=== PATIENT | male | born 1975 | race Caucasian/White ===

== ENCOUNTER 2018-01-26 18:00 | Emergency (ER) | payer BC ==
--- NOTE | 2018-01-26 18:10 | PDOC ---
History of Present Illness <Brittani Jauregui - Last Filed: 01/26/18 18:10> - General History Source: Patient Exam Limitations: No Limitations - History of Present Illness Initial Comments: 01/26/18 18:34 The patient is a 42 year old male with a significant PMH of HTN who presents to the emergency department with heart palpitations and chest tightness today. The patient reports intermittent heart palpitations since October. The patient endorses he has been exercising more than usual. The patient states he lifted weights and ran three miles today but denies having chest palpitations or chest tightness during his work-out. He states the heart palpitations typically occur after his workout or while he is eating. The patient is also complaining of weight gain and lack of sleep at night. Patient reports he takes 4 cold brews per day and does not drink enough water daily. The patient states he had a stress test and ECHO one year ago, which were both normal. The patient denies chest pain, shortness of breath, headache and dizziness. Denies fever, chills, nausea, vomit, diarrhea and constipation. Denies dysuria, frequency, urgency and hematuria. Allergies: NKA Past surgical history: None reported. Social history: No reported alcohol, drug, or cigarette use. Branch Maker: Dr. Malone <Antonia Garza - Last Filed: 01/26/18 19:02> - General Chief Complaint: Palpitations Stated Complaint: PALPITATIONS Time Seen by Provider: 01/26/18 18:05 Past History - Past Medical History Asthma: Yes (MILD. NO MEDS.) - Suicide/Smoking/Psychosocial Hx Smoking History: Never smoked Hx Alcohol Use: Yes (WINE) Drug/Substance Use Hx: No Substance Use Type: None <Brittani Jauregui - Last Filed: 01/26/18 18:10> <Antonia Garza - Last Filed: 01/26/18 19:02> - Past Medical History Allergies/Adverse Reactions: Allergies Allergy/AdvReac Type Severity Reaction Status Date / Time No Known Allergies Allergy Verified 01/26/18 18:04 Home Medications: Ambulatory Orders Valsartan/Hydrochlorothiazide [Valsartan-Hctz 80-12.5 mg Tab] 2 tab PO DAILY 08/03 Review of Systems - Review of Systems Able to Perform ROS?: Yes Comments:: 01/26/18 18:30 GENERAL/CONSTITUTIONAL: No fever or chills. No weakness. HEAD, EYES, EARS, NOSE AND THROAT: No change in vision. No ear pain or discharge. No sore throat. CARDIOVASCULAR: (+) Heart palpitations and chest tightness. No chest pain or shortness of breath. RESPIRATORY: No cough, wheezing, or hemoptysis. GASTROINTESTINAL: No nausea, vomiting, diarrhea or constipation. GENITOURINARY: No dysuria, frequency, or change in urination. MUSCULOSKELETAL: No joint or muscle swelling or pain. No neck or back pain. SKIN: No rash NEUROLOGIC: No headache, vertigo, loss of consciousness, or change in strength/ sensation. ENDOCRINE: No increased thirst. No abnormal weight change. HEMATOLOGIC/LYMPHATIC: No anemia, easy bleeding, or history of blood clots. ALLERGIC/IMMUNOLOGIC: No hives or skin allergy. <Antonia Garza - Last Filed: 01/26/18 19:02> *Physical Exam - Vital Signs Last Vital Signs Temp Pulse Resp BP Pulse Ox 98.1 F 93 H 18 146/98 100 01/26/18 18:00 01/26/18 18:00 01/26/18 18:00 01/26/18 18:00 01/26/18 18:00 <Antonia Garza - Last Filed: 01/26/18 19:02> ED Treatment Course - LABORATORY CBC & Chemistry Diagram: 01/26/18 18:39 01/26/18 18:39 <Antonia Garza - Last Filed: 01/26/18 19:02> *DC/Admit/Observation/Transfer <Brittani Jauregui - Last Filed: 01/26/18 18:10> - Attestations Scribe Attestion: 01/26/18 18:47 Documentation prepared by Antonia Garza, acting as center medical and lab director for Brittani Jauregui MD. <Antonia Garza - Last Filed: 01/26/18 19:02> - Discharge Dispostion Condition at time of disposition: Stable
[2018-01-26 18:13] VITALS: TEMP 98.1; BMI 32.4
[2018-01-26 18:52] LABS: BASO % 2.3 % (0-2.0); EOS % 2.5 % (0-4.5); HEMATOCRIT 43.8 % (35.4-49); HEMOGLOBIN 15.1 GM/dl (11.7-16.9); LYMPH % 18.5 % (8-40); MCH 29.9 pg (25.7-33.7); MCHC 34.4 g/dl (32.0-35.9); MEAN CELL VOLUME 86.9 fl (80-96); MEAN PLT VOLUME 8.2 fl (7.5-11.1); MONO % 5.8 % (3.8-10.2); NEUT % 70.9 % (42.8-82.8); PLATELET COUNT 249 K/MM3 (134-434); RBC 5.04 M/mm3 (4.00-5.60); WHITE BLOOD COUNT 10.1 K/mm3 (4.0-10.8)
[2018-01-26 19:08] LABS: ALBUMIN 4.4 g/dl (3.5-5.0); ALK PHOS 42 U/L (32-92); ANION GAP 12 (8-16); BILIRUBIN,TOTAL 0.5 mg/dl (0.2-1.0); BLOOD UREA NITROGEN 27 mg/dl (7-18); CALCIUM 9.8 mg/dl (8.4-10.2); CHLORIDE 97 mmol/L (98-107); CO2 25 mmol/L (22-28); CREATININE 1.5 mg/dl (0.6-1.3); GLUCOSE,RANDOM 93 mg/dl (74-106); POTASSIUM 3.4 mmol/L (3.5-5.1); SGOT/AST 35 U/L (10-42); SGPT/ALT 37 U/L (10-40); SODIUM 134 mmol/L (136-145); TOT PROT 6.6 g/dl (6.4-8.3)
[2018-01-26] MEDS ORDERED: SODIUM CHLORIDE 1,000 ML IV STA ×2 (19:53→21:34)
--- NOTE | 2018-01-26 20:10 | PDOC ---
*Physical Exam - Vital Signs Last Vital Signs Temp Pulse Resp BP Pulse Ox 98.1 F 93 H 18 146/98 100 01/26/18 18:00 01/26/18 18:00 01/26/18 18:00 01/26/18 18:00 01/26/18 18:00 ED Treatment Course - LABORATORY CBC & Chemistry Diagram: 01/26/18 18:39 01/27/18 00:30 - ADDITIONAL ORDERS Additional order review: Laboratory Results 01/26/18 01/26/18 18:39 18:39 Sodium 134 L Potassium 3.4 L Chloride 97 L Carbon Dioxide 25 Anion Gap 12 BUN 27 H Creatinine 1.5 H Creat Clearance w eGFR 51.08 Random Glucose 93 Calcium 9.8 Total Bilirubin 0.5 AST 35 ALT 37 Alkaline Phosphatase 42 Creatine Kinase 786 H Creatine Kinase Index 0.7 CK-MB (CK-2) 5.9 H Troponin I < 0.03 Total Protein 6.6 Albumin 4.4 01/26/18 18:39 RBC 5.04 MCV 86.9 MCHC 34.4 RDW 12.0 MPV 8.2 Neutrophils % 70.9 Lymphocytes % 18.5 Monocytes % 5.8 Eosinophils % 2.5 Basophils % 2.3 H Progress Note - Progress Note Progress Note: Pt received on signout at 7pm pending labs. Cr 1.5, CPK 700s. Will send UA, hydrate with 2L normal saline and repeat labs. Dc vs admit for rhabdo/IVF pending results. Medical Decision Making - Medical Decision Making 01/27/18 01:52 Pt feeling improved, HR 90s, is now s/p 2L IVF, Cr now 1.2 from 1.5 and CPK downtrending. Will dc home, advise PO fluid hydration and f/u with PMD. *DC/Admit/Observation/Transfer - Discharge Dispostion Disposition: HOME Condition at time of disposition: Stable - Referrals - Patient Instructions Additional Instructions: Please call your doctor for follow up. Your bloodwork showed today that you were quite dehydrated, which is likely due to the exercise and not drinking a lot of water. It's VERY IMPORTANT that you drink lots of water, especially when you exercise. Call your oncologist for follow up if you continue to have palpitations. Return to the ER if chest pain, shortness of breath or other concerning new symptoms. - Post Discharge Activity
[2018-01-26 20:13] LABS: PH,URINE 5.5 (4.5-8); URINE APPEARANCE Clear; URINE BILIRUBIN Negative (NEGATIVE); URINE BLOOD Negative (NEGATIVE); URINE GLUCOSE (UA) Negative (NEGATIVE); URINE KETONE 2+ (NEGATIVE); URINE LEUK ESTERASE Negative (NEGATIVE); URINE NITRITE Negative (NEGATIVE); URINE PROTEIN Negative (NEGATIVE); URINE UROBILINOGEN 0.2 (0.2-1.0)
[2018-01-26 20:15] LABS: URINE COLOR YELLOW
[2018-01-26 20:44] VITALS: BP 141/95; PULSE 91
[2018-01-27 01:24] LABS: ALBUMIN 3.9 g/dl (3.4-5.0); ANION GAP 10 (8-16); BLOOD UREA NITROGEN 23 mg/dL (7-18); CALCIUM 8.4 mg/dL (8.5-10.1); CHLORIDE 102 mmol/L (98-107); CO2 26 mmol/L (21-32); CREATININE 1.2 mg/dL (0.7-1.3); GLUCOSE,RANDOM 79 mg/dL (74-106); SGOT/AST 32 U/L (15-37); SGPT/ALT 46 U/L (12-78); SODIUM 138 mmol/L (136-145)
[2018-01-27 01:26] LABS: ALK PHOS 47 U/L (45-117); BILIRUBIN,TOTAL 0.6 mg/dL (0.2-1.0); TOT PROT 6.7 g/dl (6.4-8.2)
--- NOTE | 2018-01-27 09:40 | EKG ---
Test Reason : Blood Pressure : / mmHG Vent. Rate : 100 BPM Atrial Rate : 100 BPM P-R Int : 148 ms QRS Dur : 092 ms QT Int : 324 ms P-R-T Axes : 056 028 006 degrees QTc Int : 417 ms NORMAL SINUS RHYTHM NONSPECIFIC T WAVE ABNORMALITY ABNORMAL ECG NO PREVIOUS ECGS AVAILABLE Confirmed by PATTI NINO, MARYAM ([id number]) on 01/27/2018 9:39:47 AM Referred By: DR HAM Confirmed By:MARYAM ARMSTRONG MD
== END 2018-01-27 02:04 | disposition home or self-care (01) ==
LOC: SUPCPDRO 18:00 → FER 18:00
PROC: 3E0337Z Introduction of Electrolytic and Water Balance Substance into Peripheral Vein, Percutaneous Approach (ICD-10-PCS; principal; 2018-01-26)
DX: E86.0 Dehydration (principal)
CPT/HCPCS: 36415; 71045-TC-FY; 80053; 81003; 82550; 82553; 84443; 84484; 85025; 93005; 99285-25; J7030

== ENCOUNTER 2018-01-31 16:47 | Observation (INO) | payer BC ==
[2018-01-31 17:40] LABS: HEMATOCRIT 44.5 % (35.4-49); HEMOGLOBIN 15.2 GM/dL (11.7-16.9); LYMPH % 9.9 % (8-40); MCH 30.2 pg (25.7-33.7); MCHC 34.2 g/dl (32.0-35.9); MEAN CELL VOLUME 88.2 fl (80-96); MEAN PLT VOLUME 8.4 fl (7.5-11.1); MONO % 5.1 % (3.8-10.2); PLATELET COUNT 256 K/MM3 (134-434); RBC 5.04 M/mm3 (4.00-5.60); RDW 12.8 % (11.9-15.9); WHITE BLOOD COUNT 11.4 K/mm3 (4.0-10.0)
--- NOTE | 2018-01-31 17:49 | PDOC ---
History of Present Illness - General Chief Complaint: Palpitations Stated Complaint: PALPITATIONS Time Seen by Provider: 01/31/18 17:05 History Source: Patient - History of Present Illness Initial Comments: 01/31/18 17:43 42 year old male with a hx of hypertension presents to the ED for palpitations and midsternal chest pain. He states that he has been having palpitations one and off for about 1 week, and was seen here at [facility] several days ago. Today, he reports that he was at a movie theater when he began having the palpitations and pain. He reports lightheadedness and the feeling like he will pass out. Denied shortness of breath. He states that the palpitations originally started in October and have been on and off since. He has seen a black studies professor Dr. Malone in [place], who did an EKG and holter monitor, but he does not know the result. A nuclear stress test was recommended, but it was never scheduled. He reports that he drinks every day, around 1-2 drinks a day. Allergies: none Smoking: none Alcohol: 1-2 drinks every day Drugs: none PMD: Dr. Blevins Surgeries: L sided inguinal hernia repair Past History - Past Medical History Allergies/Adverse Reactions: Allergies Allergy/AdvReac Type Severity Reaction Status Date / Time No Known Allergies Allergy Verified 01/31/18 18:00 Home Medications: Ambulatory Orders Valsartan/Hydrochlorothiazide [Valsartan-Hctz 80-12.5 mg Tab] 2 tab PO DAILY 08/03 Asthma: Yes (MILD. NO MEDS.) COPD: No HTN: Yes Psychiatric Problems: Yes (ANXIETY) - Suicide/Smoking/Psychosocial Hx Smoking History: Never smoked Have you smoked in the past 12 months: No Hx Alcohol Use: Yes (WINE) Drug/Substance Use Hx: No Substance Use Type: None Review of Systems - Review of Systems Able to Perform ROS?: Yes Constitutional: No: Chills, Fever, Weakness Respiratory: No: Cough, Shortness of Breath Cardiac (ROS): Yes: Chest Pain, Palpitations. No: Edema, Syncope ABD/GI: No: Diarrhea, Nausea, Vomiting *Physical Exam - Vital Signs Last Vital Signs Temp Pulse Resp BP Pulse Ox 98.4 F 79 17 111/71 95 02/02/18 05:51 02/02/18 05:51 02/02/18 05:51 02/02/18 05:51 02/01/18 23:00 - Physical Exam Comments: 01/31/18 17:54 GENERAL: A&Ox3, anxious appearing EYES: PERRLA, EOMI ENT: Moist mucus membranes NECK: No JVD LUNGS: CTA, no wheezes HEART: RRR, no murmurs ABDOMEN: Soft, nontender, BS present MUSCULOSKELETAL: No CVA Tenderness EXTREMITIES: 2+ pulses, no edema. NEUROLOGICAL: Cranial nerves II-XII intact. ED Treatment Course - LABORATORY CBC & Chemistry Diagram: 02/02/18 06:00 02/02/18 06:00 - ADDITIONAL ORDERS Additional order review: 01/31/18 17:26 RBC 5.04 MCV 88.2 MCHC 34.2 RDW 12.8 MPV 8.4 Neutrophils % 82.0 Lymphocytes % 9.9 Monocytes % 5.1 Eosinophils % 2.0 Basophils % 1.0 Medical Decision Making - Medical Decision Making 01/31/18 17:58 42 year old male with palpitations and chest pain of several days duration -cbc, cmp, troponin, mag, EKG, chest xray negative, UA -CBC normal -EKG NSR, nonspecific T wave abnormality, Qtc 425 -gave 1 L fluid bolus -gave ASA 325 01/31/18 18:31 -troponin x1 negative, will repeat troponin at 9pm -chemistries normal -patient continues to have chest discomfort and palpitations *DC/Admit/Observation/Transfer Diagnosis at time of Disposition: Palpitations - Discharge Dispostion Decision to Admit order: Yes - Referrals - Patient Instructions - Post Discharge Activity
[2018-01-31 18:01] VITALS: BMI 29.0
[2018-01-31 18:12] LABS: ALBUMIN 3.8 g/dl (3.4-5.0); ANION GAP 10 (8-16); BILIRUBIN,TOTAL 0.5 mg/dL (0.2-1.0); BLOOD UREA NITROGEN 21 mg/dL (7-18); CALCIUM 8.9 mg/dL (8.5-10.1); CHLORIDE 100 mmol/L (98-107); CO2 28 mmol/L (21-32); CREATININE 1.3 mg/dL (0.7-1.3); GLUCOSE,RANDOM 117 mg/dL (74-106); MAGNESIUM 1.8 mg/dL (1.8-2.4); POTASSIUM 3.8 mmol/L (3.5-5.1); SGOT/AST 20 U/L (15-37); SGPT/ALT 45 U/L (12-78); SODIUM 138 mmol/L (136-145); TOT PROT 6.8 g/dl (6.4-8.2)
--- NOTE | 2018-01-31 18:18 | PDOC ---
Attending Attestation - Resident Resident Name: Stephen Velasco - ED Attending Attestation I have performed the following: I have examined & evaluated the patient, The case was reviewed & discussed with the resident, I agree w/resident's findings & plan, Exceptions are as noted - HPI HPI: 01/31/18 18:17 42 yo male p/w chest tightness that started while watching the movies - Physicial Exam PE: 01/31/18 19:29 this 42 yo male p/w palpitations 01/31/18 20:03 WNWD 42 yo male in no acute distress head ncat neck supple lungs cta cvs rrr s1s2 abd soft,nontender ext no e/c/c neuro axox3,ambulatory skin warm and dry psych anxious - Medical Decision Making 01/31/18 20:05 first trop is negative pt was seen for same complaint on 01/26/18 and had cxr at that time that was negative -pt admitted to tele OBS
[2018-01-31 18:21] LABS: ALK PHOS 47 U/L (45-117)
[2018-01-31] MEDS ORDERED: ASPIRIN 325 MG ENTERIC COATED TABLET (FP) ONE (18:34)
[2018-01-31] MEDS: ASPIRIN 325 MG ENTERIC COATED TABLET (FP) PO SCH (19:29)
[2018-01-31 19:35] LABS: URINE APPEARANCE CLEAR; URINE BILIRUBIN NEGATIVE (<2.0 mg/dL); URINE COLOR LTYELLOW; URINE GLUCOSE (UA) NEGATIVE (NEGATIVE); URINE KETONE 1+ (NEGATIVE); URINE LEUK ESTERASE NEGATIVE (NEGATIVE); URINE NITRITE NEGATIVE (NEGATIVE); URINE PROTEIN NEGATIVE (NEGATIVE); URINE UROBILINOGEN NEGATIVE mg/dL (0.2-1.0)
--- NOTE | 2018-01-31 19:35 | HP ---
CHIEF COMPLAINT: Chest Pain PCP: Dr. Blevins HISTORY OF PRESENT ILLNESS: 42 yo with pmh of HTN, HLD, anxiety who presents with 5 days of intermittent palpitations and chest pain, most recently associated with multiple episodes of lightheadness and diaphoresis today. Pt states that on Thursday last week, he began have intermittent palpitations and chest tightness/pain, with no consistent exacerbating or alleviating factors, no temporal consistency, not exacerbated by exercise or relieved by rest, lasting anywhere from seconds to hours. Pt states he was seen at [place] for these symptoms at the time and was discharged home as the cardiac work-up was negative. Pt states the symptoms have persisted for the last five days and today he became notable diaphoretic and somnolent while at the movies with his after another bout of chest pain. EMS was activated and the pt experienced another episode in the ambulance while en route to the [facility] ER. Pt also endorses persistent fatigue over the last week and poor exercise tolerance. Pt was seen by his blood bank custodian, Dr. Malone, in the past due to similar chest pain one year ago and received an EKG and holter monitor, but is unsure of results. He states he was recommended for a nuclear stress test, but it was never scheduled. Pt has no other cardiac conditions apart from HTN and HLD. He denies any recent travel, sick contacts or dietary changes. He denies any hx of skin infections or rashes of the chest wall, recent trauma. Denies f/c/n/v/d, PAN, vision changes, dysphagia, GERD, cough, SOB, ab pain, LE edema, dysuria, melena, hematochezia. ER course was notable for: (1)Normal vitals (2)WBC 11.4K (3)trop neg x1, ekg normal. Received ASA, 1L NS bolus Recent Travel: None PAST MEDICAL HISTORY: Asthma HTN Anxiety HLD ?arthritis PAST SURGICAL HISTORY: L-sided inguinal hernia Social History: Smoking: None Alcohol: 1-2 drinkers per day Drugs: None Family History: [place] Allergies None No Known Allergies Allergy (Verified 01/31/18 18:00) HOME MEDICATIONS: Home Medications Medication Instructions Recorded Valsartan/Hydrochlorothiazide 2 tab PO DAILY 01/26/18 [Valsartan-Hctz 80-12.5 mg Tab] REVIEW OF SYSTEMS CONSTITUTIONAL: + generalized weakness, malaise Absent: fever, chills, diaphoresis, loss of appetite, weight change HEENT: Absent: rhinorrhea, nasal congestion, throat pain, throat swelling, difficulty swallowing, mouth swelling, ear pain, eye pain, visual changes CARDIOVASCULAR: + chest pain/tightness Absent: syncope, palpitations, irregular heart rate, lightheadedness, peripheral edema RESPIRATORY: Absent: cough, shortness of breath, dyspnea with exertion, orthopnea, wheezing, stridor, hemoptysis GASTROINTESTINAL: Absent: abdominal pain, abdominal distension, nausea, vomiting, diarrhea, constipation, melena, hematochezia GENITOURINARY: Absent: dysuria, frequency, urgency, hesitancy, hematuria, flank pain, genital pain MUSCULOSKELETAL: Absent: myalgia, arthralgia, joint swelling, back pain, neck pain SKIN: Absent: rash, itching, pallor HEMATOLOGIC/IMMUNOLOGIC: Absent: easy bleeding, easy bruising, lymphadenopathy, frequent infections ENDOCRINE: Absent: unexplained weight gain, unexplained weight loss, heat intolerance, cold intolerance NEUROLOGIC: Absent: headache, focal weakness or paresthesias, dizziness, unsteady gait, seizure, mental status changes, bladder or bowel incontinence PSYCHIATRIC: Absent: anxiety, depression, suicidal or homicidal ideation, hallucinations. PHYSICAL EXAMINATION Vital Signs - 24 hr 01/31/18 16:47 Temperature 98.2 F Pulse Rate 80 Respiratory 16 Rate Blood Pressure 128/69 O2 Sat by Pulse 100 Oximetry (%) GENERAL: Middle aged man, Awake, alert, and fully oriented, appears anxious HEAD: Normal with no signs of trauma. EYES: Pupils equal, round and reactive to light, extraocular movements intact, sclera anicteric, conjunctiva clear. No lid lag. EARS, NOSE, THROAT: Ears normal, nares patent, oropharynx clear without exudates. Moist mucous membranes. NECK: Normal range of motion, supple without lymphadenopathy, JVD, or masses. LUNGS: Breath sounds equal, clear to auscultation bilaterally. No wheezes, and no crackles. No accessory muscle use. HEART: Regular rate and rhythm, normal S1 and S2 without murmur, rub or gallop. ABDOMEN: Soft, nontender, not distended, normoactive bowel sounds, no guarding, no rebound, no masses. No hepatomegaly or splenomegaly. MUSCULOSKELETAL: Normal range of motion at all joints. No bony deformities or tenderness. No CVA tenderness. UPPER EXTREMITIES: 2+ pulses, warm, well-perfused. No cyanosis. No clubbing. No peripheral edema. LOWER EXTREMITIES: 2+ pulses, warm, well-perfused. No calf tenderness. No peripheral edema. NEUROLOGICAL: Cranial nerves II-XII intact. Normal speech. Gait not evaluated. PSYCHIATRIC: Cooperative. Good eye contact. Appropriate mood and affect. anxious SKIN: Warm, dry, normal turgor, no rashes or lesions noted, normal capillary refill. Laboratory Results - last 24 hr CBC, BMP 18 17:26 18 17:26 18 18 18 17:26 17:26 17:47 WBC 11.4 H RBC 5.04 Hgb 15.2 Hct 44.5 MCV 88.2 MCH 30.2 MCHC 34.2 RDW 12.8 Plt Count 256 MPV 8.4 Absolute Neuts (auto) 9.4 Neutrophils % 82.0 Lymphocytes % 9.9 Monocytes % 5.1 Eosinophils % 2.0 Basophils % 1.0 Nucleated RBC % 0 Sodium 138 Potassium 3.8 Chloride 100 Carbon Dioxide 28 Anion Gap 10 BUN 21 H Creatinine 1.3 Creat Clearance w eGFR > 60 Random Glucose 117 H D Calcium 8.9 Magnesium 1.8 Total Bilirubin 0.5 AST 20 D ALT 45 Alkaline Phosphatase 47 Creatine Kinase 170 Cancelled Creatine Kinase Index 0.5 CK-MB (CK-2) 0.88 Troponin I < 0.02 Cancelled Total Protein 6.8 Albumin 3.8 TSH 0.85 D No micro CXR 01/26 - No acute pathology noted EKG - rate of 77, NAD, regular rate, qtc 425, possibly LVH ASSESSMENT/PLAN: 42 yo with pmh of HTN, HLD, anxiety who presents with 5 days of intermittent palpitations and chest pain, most recently associated with multiple episodes of lightheadness and diaphoresis today. Cardiac work-up negative up until this point. #Chest pain/tightness/palpitations - trops negative x1; EKG normal; Heart score of 1 - ASA - Cardiac monitoring - O2 support - Trend trops; f/u 2nd trop - ECHO in AM - cardiology consult - Consider SL nitro if pain persists #HTN - normotensive; on diovan at home - c/w home meds - vitals q4h #HLD - no active meds; cholesterol of "205" during prior visit to general teller - lipid panel - if elevated, will start on statin #Anxiety/depression - c/w home zoloft. CONFIRM HOME DOSE IN AM! PPX PPI HSQ FEN PO hydration Daily lytes Cardiac diet Plan to be discussed with Dr. Jose Santos MD Visit type - Emergency Visit Emergency Visit: Yes ED Registration Date: 01/31/18 Care time: The patient presented to the Emergency Department on the above date and was hospitalized for further evaluation of their emergent condition. - New Patient This patient is new to me today: Yes Date on this admission: 02/02/18 - Critical Care Critical Care patient: No Hospitalist Screening - Colonoscopy Questionnaire Colonoscopy Questionnaire: Colonoscopy Questionnaire - Patient: 50 - 75 years old and never had a screening colonoscopy: Unknown History of colon or rectal polyps, or CA: Unknown History of IBD, Crohn's disease or UC: Unknown History of abdominal radiation therapy as a child: Unknown - Relative: 1 with colon or rectal CA, or polyps at age 60 or younger: Unknown Colon or rectal CA diagnosed at age 45 or younger: Unknown Multiple relatives with colon or rectal CA: Unknown - Outcome: Screening Result: Negative Screen
[2018-01-31] MEDS ORDERED: ACETAMINOPHEN 325 MG TABLET (FP) PO PRN (23:06)
[2018-02-01] MEDS: ALPRAZolam 0.25 MG TABLET PO PRN ×3 (00:04→21:55)
[2018-02-01] MEDS ORDERED: ALPRAZolam 0.25 MG TABLET ONE (00:06)
--- NOTE | 2018-02-01 00:09 | PN ---
Teaching Attending Note Name of Resident: Kenroy Santos ATTENDING PHYSICIAN STATEMENT I saw and evaluated the patient. Chart, data, imaging reviewed. I reviewed the resident's note and discussed the case with the resident. I agree with the resident's findings and plan as documented. SUBJECTIVE: 42 yo man with pmh of HTN, HLD, anxiety who presents with 5 days of intermittent palpitations and chest pain. Patient was no history of cardiac disease. EKG in ER was essentially wnl. HE runs 3 miles 3 times a week without any issues and lifts weights at the gym. He mentioned that he was worked up by outside machine technician one year ago including echo, ekg, holter which were wnl. OBJECTIVE: Last Vital Signs Temp Pulse Resp BP Pulse Ox 98.2 F 91 H 18 137/75 98 01/31/18 16:47 01/31/18 22:45 01/31/18 22:45 01/31/18 22:45 01/31/18 22:45 general- nad, aaox3 heent -at, nc cv-s1+s2+rrr chest cta abdomen -soft , nt skin - no rashes Abnormal Lab Results 01/31/18 01/31/18 01/31/18 17:26 17:26 19:30 WBC 11.4 H BUN 21 H Random Glucose 117 H D Urine Ketones 1+ H ekg reviewed by me , nsr, no signs of acute ischemic changes ASSESSMENT AND PLAN: #42yo man with palpitations likely secondary to anxiety. Doubt ACS, given patient's functional status, angélica; EKG, lack of risk factors, and previously normal workup with machine technician. TSH was wnl. Chest discomfort may also be costochondritis from weight lifting. -tele/observation -send urine drug screen -trend troponin -transthoracic echo -continue SSRI -xananx prn for acute anxiety attacks -psych evaluation for anxiety as an outpatient -heparin for dvt ppx
[2018-02-01] MEDS: HEPARIN NA (PORCINE) 5,000 UNITS/ML 1ML VIAL SQ SCH ×3 (06:29→21:55)
[2018-02-01 07:00] LABS: BASO % 0.9 % (0-2.0); EOS % 1.9 % (0-4.5); HEMATOCRIT 43.4 % (35.4-49); HEMOGLOBIN 15.1 GM/dL (11.7-16.9); LYMPH % 17.7 % (8-40); MCH 30.5 pg (25.7-33.7); MCHC 34.9 g/dl (32.0-35.9); MEAN CELL VOLUME 87.4 fl (80-96); MEAN PLT VOLUME 8.3 fl (7.5-11.1); MONO % 6.6 % (3.8-10.2); NEUT % 72.9 % (42.8-82.8); PLATELET COUNT 212 K/MM3 (134-434); RBC 4.97 M/mm3 (4.00-5.60); RDW 12.9 % (11.9-15.9); WHITE BLOOD COUNT 8.2 K/mm3 (4.0-10.0)
[2018-02-01 07:17] LABS: INR 1.06 (0.82-1.09)
[2018-02-01 07:20] LABS: ACTIVATED PTT 26.2 SECONDS (25.2-36.5)
[2018-02-01 07:47] LABS: CHLORIDE 98 mmol/L (98-107); POTASSIUM 3.6 mmol/L (3.5-5.1); SODIUM 137 mmol/L (136-145)
[2018-02-01 08:07] LABS: ALBUMIN 3.8 g/dl (3.4-5.0); ALK PHOS 47 U/L (45-117); ANION GAP 11 (8-16); BLOOD UREA NITROGEN 12 mg/dL (7-18); CO2 28 mmol/L (21-32); GLUCOSE,RANDOM 88 mg/dL (74-106); MAGNESIUM 2.2 mg/dL (1.8-2.4); PHOSPHOROUS 4.1 mg/dL (2.5-4.9); SGOT/AST 17 U/L (15-37); SGPT/ALT 38 U/L (12-78); TOT PROT 6.7 g/dl (6.4-8.2)
[2018-02-01 09:56] LABS: CHOLESTEROL 188 mg/dL (50-200); HDL CHOLESTEROL 51 mg/dL (40-60); TRIGLYCERIDES 104 mg/dL (35-160)
[2018-02-01] MEDS: ASPIRIN 325 MG ENTERIC COATED TABLET (FP) PO SCH (10:19)
[2018-02-01] MEDS: PANTOPRAZOLE 40 MG TABLET (FP) PO SCH (10:19)
--- NOTE | 2018-02-01 14:14 | EKG ---
Test Reason : Blood Pressure : / mmHG Vent. Rate : 077 BPM Atrial Rate : 077 BPM P-R Int : 154 ms QRS Dur : 096 ms QT Int : 376 ms P-R-T Axes : 044 017 003 degrees QTc Int : 425 ms NORMAL SINUS RHYTHM MINIMAL VOLTAGE CRITERIA FOR LVH, MAY BE NORMAL VARIANT NONSPECIFIC T WAVE ABNORMALITY ABNORMAL ECG WHEN COMPARED WITH ECG OF 26-JAN-2018 18:15, NO SIGNIFICANT CHANGE WAS FOUND Confirmed by ROMERO CONNOLLY MD ([id number]) on 02/01/2018 2:13:52 PM Referred By: Confirmed By:ROMERO CONNOLLY MD
--- NOTE | 2018-02-01 14:15 | CON.CARD ---
Consult Consult Specialty:: Cardiology Referred by:: Jorge Luis Garcia Reason for Consultation:: Chest pain - History of Present Illness Chief Complaint: Chest pain History of Present Illness: 42 yo with pmh of HTN, HLD, anxiety who presents with chest pain. Patient reports that last week after lifting weights and running 3 miles he felt intermittent chest pain/tightness and palpitations at home. This past week he has been having this same sensation on and off with no particular aggravating or alleviating factors. No pnd, orthopnea, or edema. No tobacco use. No family history of CAD/IN but does not know father. Had a nuclear stress test planned with Dr. Malone as an outpatient. Day of presentation was at the movies with is when had similar sensation and felt diaphoretic and like he might pass out. Today feels fine but is very worried/anxious. No events on tele. Echocardiogram normal LVEF and no significant valve disease. CE's neg x2 EKG no ischemic changes - History Source History Provided By: Patient, Medical Record Limitations to Obtaining History: No Limitations - Past Medical History Cardio/Vascular: Yes: HTN - Alcohol/Substance Use Hx Alcohol Use: Yes (WINE) - Smoking History Smoking history: Never smoked Have you smoked in the past 12 months: No Home Medications - Allergies Allergies/Adverse Reactions: Allergies Allergy/AdvReac Type Severity Reaction Status Date / Time No Known Allergies Allergy Verified 01/31/18 18:00 - Home Medications Home Medications: Ambulatory Orders Valsartan/Hydrochlorothiazide [Valsartan-Hctz 80-12.5 mg Tab] 2 tab PO DAILY 08/03 Vital Signs: Vital Signs Temperature 98.1 F 02/01/18 09:58 Pulse Rate 68 02/01/18 09:58 Respiratory Rate 18 02/01/18 09:58 Blood Pressure 124/72 02/01/18 09:58 O2 Sat by Pulse Oximetry (%) 96 02/01/18 07:07 Constitutional: Yes: No Distress Neck: Yes: WNL Respiratory: Yes: CTA Bilaterally Cardiovascular: Yes: Regular Rate and Rhythm JVD: No Carotid Bruit: No PMI: Non-Displaced Heart Sounds: Yes: S1, S2 Murmur: No: Systolic Murmur Edema: No - Other Data Labs, Other Data: CBC, BMP 02/01/18 06:45 02/01/18 06:45 INR, PTT INR 1.06 (0.82-1.09) 02/01/18 06:45 Troponin, BNP 01/31/18 01/31/1818 17:26 17:47 20:36 Troponin I < 0.02 Cancelled < 0.02 Troponin, BNP 01/31/18 01/31/1818 17:26 17:47 20:36 Troponin I < 0.02 Cancelled < 0.02 Imaging - Results Chest X-ray: Report Reviewed EKG: Image Reviewed Problem List - Problems (1) Palpitations Code(s): R00.2 - PALPITATIONS Assessment/Plan 42 yo with pmh of HTN, HLD, anxiety who presents with chest pain and palpitations. 1) Chest pain/palpitations. No events on tele. Echocardiogram normal LVEF and no significant valve disease. CE's neg x2 EKG no ischemic changes -Possibly due to stress/anxiety but given recurrent symptoms and ER visits will plan for nuclear exercise stress test (was also planned as outpatient). Discussed radiation with NST and that he cannot be around children 24 hours if goes home after NST tomorrow. 2) HTN BP has been normal here Would monitor and if starts to run high start with lower dose valsartan.
--- NOTE | 2018-02-01 16:40 | PN ---
Progress Note (short form) - Note Progress Note: Subjective: The patient was seen and examined at the bedside, he reports feeling fatigued. He states he is still feeling the palpitations. Current Medications Generic Name Dose Route Start Last Admin Trade Name Fregenie PRN Reason Stop Dose Admin Acetaminophen 650 mg 01/31/18 23:06 Tylenol - PO Q4H PRN PAIN LEVEL 1-5 Alprazolam 0.25 mg 01/31/18 23:06 02/01/18 10:25 Xanax - PO 0.25 mg Q8H PRN Administration ANXIETY Aspirin 325 mg 01/31/18 18:00 02/01/18 10:19 Ecotrin - PO 325 mg DAILY JEVON Administration Heparin Sodium (Porcine) 5,000 unit 02/01/18 06:00 02/01/18 15:19 Heparin - SQ 5,000 unit TID JEVON Administration Pantoprazole Sodium 40 mg 02/01/18 10:00 02/01/18 10:19 Protonix - PO 40 mg DAILY JEVON Administration Objective: Vital Signs Period Temp Pulse Resp BP Sys/Tubbs Pulse Ox Last 24 Hr 97.6 F-98.5 F 68-92 16-20 123-147/69-93 96-100 Physical Exam: General: NAD, A&Ox3 Lungs: CTA bilaterally Heart: RRR, S1S2 Abd: Soft, non-distended Ext: Warm, well-perfused. 2+ DP/PT bilaterally, no edema Neuro: CN 2-12 intact CBCD WBC 8.2 K/mm3 (4.0-10.0) 02/01/18 06:45 RBC 4.97 M/mm3 (4.00-5.60) 02/01/18 06:45 Hgb 15.1 GM/dL (11.7-16.9) 02/01/18 06:45 Hct 43.4 % (35.4-49) 02/01/18 06:45 MCV 87.4 fl (80-96) 02/01/18 06:45 MCHC 34.9 g/dl (32.0-35.9) 02/01/18 06:45 RDW 12.9 % (11.9-15.9) 02/01/18 06:45 Plt Count 212 K/MM3 (134-434) 02/01/18 06:45 MPV 8.3 fl (7.5-11.1) 02/01/18 06:45 CMP Sodium 137 mmol/L (136-145) 02/01/18 06:45 Potassium 3.6 mmol/L (3.5-5.1) 02/01/18 06:45 Chloride 98 mmol/L (98-107) 02/01/18 06:45 Carbon Dioxide 28 mmol/L (21-32) 02/01/18 06:45 Anion Gap 11 (8-16) 02/01/18 06:45 BUN 12 mg/dL (7-18) D 02/01/18 06:45 Creatinine 1.0 mg/dL (0.7-1.3) D 02/01/18 06:45 Creat Clearance w eGFR > 60 (>60) 02/01/18 06:45 Random Glucose 88 mg/dL (74-106) D 02/01/18 06:45 Calcium 9.0 mg/dL (8.5-10.1) 02/01/18 06:45 Total Bilirubin 1.0 mg/dL (0.2-1.0) D 02/01/18 06:45 AST 17 U/L (15-37) 02/01/18 06:45 ALT 38 U/L (12-78) 02/01/18 06:45 Alkaline Phosphatase 47 U/L (45-117) 02/01/18 06:45 Total Protein 6.7 g/dl (6.4-8.2) 02/01/18 06:45 Albumin 3.8 g/dl (3.4-5.0) 02/01/18 06:45 CARDIAC ENZYMES Creatine Kinase 189 IU/L (39-308) 01/31/18 20:36 Troponin I < 0.02 ng/ml (0.00-0.05) 01/31/18 20:36 Assessment: This is a 42 year old male with PMHx of anxiety, HTN, hyperlipidemia who presented to the ED with 5 days of palpitations, chest pain, and episode of diaphoresis and near syncope Plan: 1) Palpitations, chest pain - No events on tele - ECHO reviewed, normal LVEF - Trop x 2 negative - EKG reviewed - For exercise stress test tomorrow - Appreciate cardiology consult 2) HTN - Continue to monitor off all medications - If increases, will start Valsartan 3) F/E/N: - Sodium controlled diet - NPO after midnight 4) Prophylaxis: - OOB ambulatings - SCDs bilaterally 5) Dispo: - Once condition improves CODE STATUS: FULL CODE Visit type - Emergency Visit Emergency Visit: Yes ED Registration Date: 01/31/18 Care time: The patient presented to the Emergency Department on the above date and was hospitalized for further evaluation of their emergent condition. - New Patient This patient is new to me today: Yes Date on this admission: 02/01/18 - Critical Care Critical Care patient: No
[2018-02-01 20:27] LABS: URINE APPEARANCE CLEAR; URINE BILIRUBIN NEGATIVE (<2.0 mg/dL); URINE COLOR STRAW; URINE GLUCOSE (UA) NEGATIVE (NEGATIVE); URINE KETONE NEGATIVE (NEGATIVE); URINE LEUK ESTERASE NEGATIVE (NEGATIVE); URINE NITRITE NEGATIVE (NEGATIVE); URINE PROTEIN NEGATIVE (NEGATIVE); URINE UROBILINOGEN NEGATIVE mg/dL (0.2-1.0)
[2018-02-02] MEDS: HEPARIN NA (PORCINE) 5,000 UNITS/ML 1ML VIAL SQ SCH ×2 (05:57→15:22)
[2018-02-02 06:47] LABS: BASO % 0.9 % (0-2.0); EOS % 1.9 % (0-4.5); HEMATOCRIT 44.2 % (35.4-49); HEMOGLOBIN 15.1 GM/dL (11.7-16.9); LYMPH % 30.9 % (8-40); MCH 30.1 pg (25.7-33.7); MEAN CELL VOLUME 88.6 fl (80-96); MONO % 9.2 % (3.8-10.2); NEUT % 57.1 % (42.8-82.8); PLATELET COUNT 201 K/MM3 (134-434); RBC 4.99 M/mm3 (4.00-5.60); WHITE BLOOD COUNT 6.3 K/mm3 (4.0-10.0)
[2018-02-02 07:18] LABS: ALBUMIN 3.7 g/dl (3.4-5.0); ANION GAP 7 (8-16); BLOOD UREA NITROGEN 12 mg/dL (7-18); CALCIUM 9.2 mg/dL (8.5-10.1); CHLORIDE 101 mmol/L (98-107); CO2 32 mmol/L (21-32); CREATININE 1.2 mg/dL (0.7-1.3); GLUCOSE,RANDOM 98 mg/dL (74-106); POTASSIUM 3.8 mmol/L (3.5-5.1); SGOT/AST 15 U/L (15-37); SGPT/ALT 35 U/L (12-78); SODIUM 140 mmol/L (136-145)
[2018-02-02 07:21] LABS: ALK PHOS 46 U/L (45-117); BILIRUBIN,TOTAL 0.6 mg/dL (0.2-1.0); TOT PROT 6.6 g/dl (6.4-8.2)
[2018-02-02] MEDS ORDERED: ALPRAZolam 0.25 MG TABLET ONE (09:20)
[2018-02-02] MEDS: ALPRAZolam 0.25 MG TABLET PO PRN (09:24)
[2018-02-02] MEDS: ASPIRIN 325 MG ENTERIC COATED TABLET (FP) PO SCH (10:21)
[2018-02-02] MEDS: PANTOPRAZOLE 40 MG TABLET (FP) PO SCH (10:21)
--- NOTE | 2018-02-02 10:25 | PN ---
Progress Note, Physician History of Present Illness: seen and examined today in [facility]. no overnight events. no new complaints. - Current Medication List Current Medications: Active Medications Acetaminophen (Tylenol -) 650 mg PO Q4H PRN PRN Reason: PAIN LEVEL 1-5 Alprazolam (Xanax -) 0.25 mg PO Q8H PRN PRN Reason: ANXIETY Last Admin: 02/02/18 09:24 Dose: 0.25 mg Aspirin (Ecotrin -) 325 mg PO DAILY [facility] Last Admin: 02/01/18 10:19 Dose: 325 mg Heparin Sodium (Porcine) (Heparin -) 5,000 unit SQ TID [facility] Last Admin: 02/02/18 05:57 Dose: 5,000 unit Pantoprazole Sodium (Protonix -) 40 mg PO DAILY [facility] Last Admin: 02/01/18 10:19 Dose: 40 mg - Objective Vital Signs: Vital Signs Temperature 98.4 F 02/02/18 05:51 Pulse Rate 79 02/02/18 05:51 Respiratory Rate 17 02/02/18 05:51 Blood Pressure 111/71 02/02/18 05:51 O2 Sat by Pulse Oximetry (%) 95 02/01/18 23:00 Constitutional: Yes: No Distress, Calm Eyes: Yes: Conjunctiva Clear, EOM Intact HENT: Yes: Atraumatic, Normocephalic Cardiovascular: Yes: Regular Rate and Rhythm, S1, S2. No: Bradycardia, Tachycardia, Pulse Irregular, Bruit, JVD, Gallop, Murmur, Rub, S3, S4, Varicosities Respiratory: Yes: Regular, CTA Bilaterally. No: Rales, Rhonchi, SOB, Wheezes Gastrointestinal: Yes: Normal Bowel Sounds, Soft. No: Distention, Tenderness Extremities: Yes: WNL Edema: No Peripheral Pulses WNL: Yes Neurological: Yes: Alert, Oriented Psychiatric: Yes: Alert, Oriented Labs: CBC, BMP 02/02/18 06:00 02/02/18 06:00 INR, PTT INR 1.06 (0.82-1.09) 02/01/18 06:45 - ....Imaging Chest X-ray: Report Reviewed, Image Reviewed EKG: Report Reviewed, Image Reviewed Other: Report Reviewed, Image Reviewed (tele-no arrhythmias recorded) Assessment/Plan 42 yo with pmh of HTN, HLD, anxiety who presents with chest pain and palpitations. 1) Chest pain/palpitations. No events on tele. Echocardiogram normal LVEF and no significant valve disease. CE's wnl EKG no ischemic changes -fup nuclear exercise stress test today, if no ischemia pt would be acceptable for discharge home from a cardiac standpoint 2) HTN-overall adequate -monitor and outpt fup
[2018-02-02] MEDS ORDERED: ALPRAZolam 0.25 MG TABLET PO ONE (15:14)
--- NOTE | 2018-02-02 15:15 | DS ---
Physical Examination Vital Signs: Vital Signs Temperature 98.1 F 02/02/18 10:00 Pulse Rate 73 02/02/18 10:00 Respiratory Rate 17 02/02/18 10:00 Blood Pressure 143/79 02/02/18 10:00 O2 Sat by Pulse Oximetry (%) 95 02/01/18 23:00 Labs: CBC, BMP 02/02/18 06:00 02/02/18 06:00 Discharge Summary Reason For Visit: PALPITATIONS Current Active Problems Palpitations (Acute) Condition: Improved - Instructions Diet, Activity, Other Instructions: Please return to the ED with new, persistent, or worsening symptoms. Please follow-up with your primary care provider within 1 week. Please follow-up with Dr. Moya (on February 16, 2018 at 3pm). Referrals: Mitul Blevins MD [Primary Care Provider] - 1 Week Gallo Nieto MD [Staff Physician] - (Please follow-up with psychiatry within 1 week for further management of your anxiety. ) Disposition: HOME - Home Medications Comprehensive Discharge Medication List: Ambulatory Orders Valsartan/Hydrochlorothiazide [Valsartan-Hctz 80-12.5 mg Tab] 2 tab PO DAILY 08/03
[2018-02-02] MEDS: MAG HYDROX/AL HYDROX/SIMETH 30 ML UNIT-DOSE CUP PO ONE (15:20)
[2018-02-02 18:17] VITALS: BP 115/70; PULSE 70; TEMP 98.2
== END 2018-02-02 17:24 | disposition home or self-care (01) ==
LOC: JER 16:47 → JERBED 18:49 → J4W 02-01 02:44
PROVIDERS: ADMIT Internal Medicine; ATTEND Registered Nurse
DX: R00.2 Palpitations (principal); R07.9 Chest pain, unspecified; I10 Essential (primary) hypertension; J45.909 Unspecified asthma, uncomplicated; F41.9 Anxiety disorder, unspecified; E78.5 Hyperlipidemia, unspecified
CPT/HCPCS: 36415; 78452-TC; 80053; 80061; 81003; 82550; 82553; 83721; 83735; 84100; 84439; 84443; 84484; 85025; 85610; 85730; 93005; 93010; 93017; 93306-TC; 99285-25; A9502; G0378; J1644